=== PATIENT | female | born 1950 | race Caucasian/White ===

== ENCOUNTER 2021-05-23 10:41 | Emergency (ER) | payer MEDICARE, MEDICAID ==
[~2021-05-23] VITALS: Ht 165 cm; Wt 53.5 kg
--- NOTE | 2021-05-23 10:47 | ED Chest Pain ---
General Stated Complaint: CP,TACHYCARDIA Source: patient Exam Limitations: no limitations History of Present Illness Date Seen by Provider: May 23, 2021 Time Seen by Provider: 10:45 Initial Comments To ER with chest pain and tachycardia. Patient states this began sometime yesterday just medial to the left breast and persisted until about 1 hour ago. She is from [facility] and rehab. Staff reports that she did not mention it to them until this morning and there is some history of dementia as of the time of onset is unclear. Either way by the time EMS arrived she was without chest pain. Aspirin was given but no nitro. Allegedly her heart rate was 170 at some point but is not anymore. Timing/Duration: 1-2 days Severity/Quality: moderate Location: central Radiation: no radiation ASA po OYSTER CULTIVATOR: No NTG SL OYSTER CULTIVATOR: No Associated Symptoms: denies symptoms Allergies and Home Medications Allergies Coded Allergies: codeine (Verified Allergy, Unknown, 05/23/21) Patient Home Medication List Home Medication List Reviewed: Yes Review of Systems Review of Systems Constitutional: see HPI EENTM: No Symptoms Reported Respiratory: No Symptoms Reported Cardiovascular: See HPI, Chest Pain Gastrointestinal: See HPI Genitourinary: No Symptoms Reported Musculoskeletal: no symptoms reported Skin: no symptoms reported Psychiatric/Neurological: No Symptoms Reported Endocrine: No Symptoms Reported Hematologic/Lymphatic: No Symptoms Reported Physical Exam Vital Signs Vital Signs - First Documented Capillary Refill : Height, Weight, BMI Height: '" Weight: lbs. oz. kg; BMI Method: General Appearance: No Apparent Distress, WD/WN, Other (She is alert at this time but not good at recalling history. She does seem to have a bit of dementia. Hard to keep on track during conversation) Neck: Full Range of Motion, Normal Inspection Respiratory: No Accessory Muscle Use, No Respiratory Distress Cardiovascular: Regular Rate, Rhythm, Normal Peripheral Pulses Gastrointestinal: Normal Bowel Sounds, Non Tender, Soft Extremity: Normal Capillary Refill, Normal Inspection Neurologic/Psychiatric: Alert, Oriented x3 Skin: Normal Color, Warm/Dry Progress/Results/Core Measures Results/Orders Lab Results Laboratory Tests Test 05/23/21 11:00 Range/Units White Blood Count 4.8 4.3-11.0 10^3/uL Red Blood Count 4.13 3.80-5.11 10^6/uL Hemoglobin 12.5 11.5-16.0 g/dL Hematocrit 40 35-52 % Mean Corpuscular Volume 96 80-99 fL Mean Corpuscular Hemoglobin 30 25-34 pg Mean Corpuscular Hemoglobin Concent 32 32-36 g/dL Red Cell Distribution Width 15.3 H 10.0-14.5 % Platelet Count 148 130-400 10^3/uL Mean Platelet Volume 9.2 9.0-12.2 fL Immature Granulocyte % (Auto) 0 % Neutrophils (%) (Auto) 40 L 42-75 % Lymphocytes (%) (Auto) 48 H 12-44 % Monocytes (%) (Auto) 9 0-12 % Eosinophils (%) (Auto) 3 0-10 % Basophils (%) (Auto) 1 0-10 % Neutrophils # (Auto) 1.9 1.8-7.8 10^3/uL Lymphocytes # (Auto) 2.3 1.0-4.0 10^3/uL Monocytes # (Auto) 0.4 0.0-1.0 10^3/uL Eosinophils # (Auto) 0.1 0.0-0.3 10^3/uL Basophils # (Auto) 0.0 0.0-0.1 10^3/uL Immature Granulocyte # (Auto) 0.0 0.0-0.1 10^3/uL Prothrombin Time 13.2 12.2-14.7 SEC INR Comment 1.0 0.8-1.4 Activated Partial Thromboplast Time 30 24-35 SEC Sodium Level 144 135-145 MMOL/L Potassium Level 3.4 L 3.6-5.0 MMOL/L Chloride Level 106 98-107 MMOL/L Carbon Dioxide Level 32 21-32 MMOL/L Anion Gap 6 5-14 MMOL/L Blood Urea Nitrogen 13 7-18 MG/DL Creatinine 0.79 0.60-1.30 MG/DL Estimat Glomerular Filtration Rate 72 BUN/Creatinine Ratio 16 Glucose Level 110 H 70-105 MG/DL Calcium Level 9.4 8.5-10.1 MG/DL Corrected Calcium 10.0 8.5-10.1 MG/DL Magnesium Level 1.9 1.6-2.4 MG/DL Total Bilirubin 0.5 0.1-1.0 MG/DL Aspartate Amino Transf (AST/SGOT) 16 5-34 U/L Alanine Aminotransferase (ALT/SGPT) 12 0-55 U/L Alkaline Phosphatase 42 40-136 U/L Myoglobin 25.4 10.0-92.0 NG/ML Troponin I < 0.028 <0.028 NG/ML Total Protein 5.6 L 6.4-8.2 GM/DL Albumin 3.2 3.2-4.5 GM/DL My Orders Orders - KIMBER LOERA APRN Cbc With Automated Diff (05/23/21 10:44) Magnesium (05/23/21 10:44) Chest 1 View, Ap/Pa Only (05/23/21 10:44) Ekg Tracing (05/23/21 10:44) Comprehensive Metabolic Panel (05/23/21 10:44) Myoglobin Serum (05/23/21 10:44) Protime With Inr (05/23/21 10:44) Partial Thromboplastin Time (05/23/21 10:44) O2 (05/23/21 10:44) Monitor-Rhythm Ecg Trace Only (05/23/21 10:44) Lipid Panel (05/24/21 06:00) Ed Iv/Invasive Line Start (05/23/21 10:44) Troponin I (05/23/21 10:44) Vital Signs/I&O 05/23/21 05/23/21 10:44 10:44 Temp 36.8 Pulse 85 Resp 12 B/P (MAP) 129/72 (91) Pulse Ox 96 O2 Delivery Room Air Room Air Diagnostic Imaging Diagonstic Imaging: Xray Plain Films/CT/US/NM/MRI: chest Comments CXR clear Reviewed: Reviewed by Me Departure Communication (Admissions) EKG at 1055 shows sinus rhythm rate of 74 with a PAC, otherwise normal intervals no ST segment changes Impression Primary Impression: Chest pain Disposition: HOME, SELF-CARE Condition: Stable Departure-Patient Inst. Decision time for Depature: 12:23 Patient Instructions: NO INSTRUCTIONS GIVEN KIMBER LOERA APRN May 23, 2021 10:47
[2021-05-23 11:10] LABS: BASOPHILS % (AUTO) 1 % (0-10); EOSINOPHILS # (AUTO) 0.1 10^3/uL (0.0-0.3); EOSINOPHILS % (AUTO) 3 % (0-10); HEMATOCRIT 40 % (35-52); HEMOGLOBIN 12.5 g/dL (11.5-16.0); LYMPHOCYTES # (AUTO) 2.3 10^3/uL (1.0-4.0); LYMPHOCYTES % (AUTO) 48 % (12-44); MEAN CORPUSCULAR HEMOGLOBIN 30 pg (25-34); MEAN CORPUSCULAR HGB CONC 32 g/dL (32-36); MEAN CORPUSCULAR VOLUME 96 fL (80-99); MEAN PLATELET VOLUME 9.2 fL (9.0-12.2); MONOCYTES # (AUTO) 0.4 10^3/uL (0.0-1.0); MONOCYTES % (AUTO) 9 % (0-12); NEUTROPHILS # (AUTO) 1.9 10^3/uL (1.8-7.8); NEUTROPHILS % (AUTO) 40 % (42-75); PLATELET COUNT 148 10^3/uL (130-400); WHITE BLOOD COUNT 4.8 10^3/uL (4.3-11.0)
[2021-05-23 11:18] LABS: PROTHROMBIN TIME PATIENT 13.2 SEC (12.2-14.7)
--- NOTE | 2021-05-23 11:22 | Diagnostic Imaging Report ---
HISTORY: Chest pain TECHNIQUE: Frontal view of the chest FINDINGS: Lung volumes are normal. No focal consolidation is seen. There is no pleural effusion or pneumothorax. The cardiac silhouette is normal in size. There is aortic atherosclerosis. IMPRESSION: 1. No acute pulmonary abnormality. Dictated by: Dictated on workstation # [id number]
[2021-05-23 11:43] LABS: ALBUMIN 3.2 GM/DL (3.2-4.5); BILIRUBIN,TOTAL 0.5 MG/DL (0.1-1.0); CALCIUM 9.4 MG/DL (8.5-10.1); CREATININE SERUM 0.79 MG/DL (0.60-1.30); MAGNESIUM 1.9 MG/DL (1.6-2.4); POTASSIUM 3.4 MMOL/L (3.6-5.0); TOTAL PROTEIN 5.6 GM/DL (6.4-8.2)
[2021-05-23 12:30] VITALS: BP 135/95
== END 2021-05-23 12:30 | disposition home or self-care (01) ==
LOC: ER 10:42
DX: R07.89 Other chest pain (principal); F03.90 Unspecified dementia, unspecified severity, without behavioral disturbance, psychotic disturbance, mood disturbance, and anxiety
CPT/HCPCS: 36415; 71045; 80053; 83735; 83874; 84484; 85025; 85610; 85730; 93005; 93041

== ENCOUNTER → 2021-06-22 | Outpatient (CLI) | payer MEDICARE, MEDICAID | LOC: CARD 14:05 | PROVIDERS: ATTEND Internal Medicine Cardiovascular Disease | DX: I08.0 Rheumatic disorders of both mitral and aortic valves (principal) | CPT/HCPCS: 93306 ==

== ENCOUNTER → 2021-06-22 | Outpatient (CLI) | payer MEDICARE, MEDICAID | LOC: RAD 06-09 11:00 | PROVIDERS: ATTEND Nurse Practitioner Community Health | DX: Z53.9 Procedure and treatment not carried out, unspecified reason (principal) ==

== ENCOUNTER → 2021-07-26 | Outpatient (CLI) | payer MEDICARE, MEDICAID ==
[~2021-07-26] MED LIST: ACET-93 PO; ASPI-999 PO; ATOR40TA70 PO; CHOL-34 PO; DIVA125C PO; DIVA125C10 PO; ENOX40DI8 SC; FOLI1TAB33 PO; LACT10SO3 PO; LEVO100T7 PO; MTP25TSR PO; MULT-1136 PO; OXC5T PO; PANT20TA18 PO; SENN-234 PO; SERT-412 PO; TOLN45PO2 TP; TRZ50T PO
== END ==
LOC: ORTHO 09:37
PROVIDERS: ATTEND Orthopaedic Surgery
DX: Z09 Encounter for follow-up examination after completed treatment for conditions other than malignant neoplasm (principal); I10 Essential (primary) hypertension; Z98.890 Other specified postprocedural states

== ENCOUNTER → 2021-08-25 | Outpatient (CLI) | payer MEDICARE, MEDICAID ==
--- NOTE | 2021-08-25 09:53 | Diagnostic Imaging Report ---
INDICATION: Postop right hip fractures. Comparison with 07/07/2021. Two views. Two cannulated cortical bone screws are now present within the femoral trochanter and neck transfixing subcapital fracture with femoral head. Alignment is near anatomical. The screws appear in good position. Moderate arthritic changes noted of the right hip. IMPRESSION: Satisfactory appearing fixation of the right femoral neck fracture Dictated by: Dictated on workstation # [id number]
== END ==
LOC: ORTHO 09:11
PROVIDERS: ATTEND Orthopaedic Surgery
DX: Z09 Encounter for follow-up examination after completed treatment for conditions other than malignant neoplasm (principal); Z98.890 Other specified postprocedural states
CPT/HCPCS: 73502

== ENCOUNTER 2021-10-10 06:05 | Outpatient (CLI) | payer MEDICARE, MEDICAID ==
[~2021-10-10] VITALS: Ht 157.5 cm; Wt 62.6 kg
[2021-10-10] MEDS ORDERED: MICO85PO4 TP (13:32)
[2021-10-10] MEDS ORDERED: METO-351 PO (13:32)
== END 2021-10-10 15:15 | disposition home or self-care (01) ==
LOC: PREOP 06:05
PROVIDERS: ATTEND Surgery
DX: Z01.818 Encounter for other preprocedural examination (principal)

== ENCOUNTER 2021-10-18 08:53 | Day surgery (SDC) | payer MEDICARE, MEDICAID ==
[~2021-10-18] VITALS: Ht 157.5 cm; Wt 62.6 kg
[~2021-10-18 08:53] MED LIST changes: +METO-351 PO; +MICO85PO4 TP
[2021-10-18] MEDS ORDERED: LACTATED RINGERS 1,000 ML IV ONE (09:08)
[2021-10-18 09:17] VITALS: BP 157/99
--- NOTE | 2021-10-18 09:23 | Progress Note-Pre Operative ---
Pre-Operative Progress Note H&P Reviewed The H&P was reviewed, patient examined and no changes noted. Date Seen by Provider: Oct 18, 2021 Time Seen by Provider: :23 Date H&P Reviewed: Oct 18, 2021 Time H&P Reviewed: :23 Pre-Operative Diagnosis: +colMAGGY Rodriguez DO Oct 18, 2021 09:23
[2021-10-18] MEDS ORDERED: LACTATED RINGERS 1,000 ML IV STA (09:27)
[2021-10-18] MEDS ORDERED: proPOfol 200 MG/20 ML (DIPRIVAN) VIAL IV ONE (09:32)
[2021-10-18] MEDS ORDERED: ceFAZolin INJECTION 1,000 MG ONE (09:40)
--- NOTE | 2021-10-18 10:16 | Progress Note-Post Operative ---
Post-Operative Progess Note Surgeon (s)/Freelance Copywriter (s) Surgeon MAGGY GALEANO DO Freelance Copywriter: N/A Pre-Operative Diagnosis +cologuard Post-Operative Diagnosis Diverticulosis Procedure & Operative Findings Date of Procedure 10/18/21 Procedure Performed/Findings Colonoscopy Anesthesia Type per SALESFORCE TRAINER Estimated Blood Loss Estimated blood loss (mL): none Specimens/Packing Specimens Removed none MAGGY GALEANO DO Oct 18, 2021 10:16
--- NOTE | 2021-10-18 10:17 | Discharge Inst-Simple/Standard ---
Discharge Inst-Standard Patient Instructions/Follow Up Plan of Care/Instructions/FU: Patient does not need repeat colonoscopy unless having colonic difficulties. Follow up with Dr. Menchaca on as needed basis. Activity as Tolerated: Yes Discharge Diet: Regular Diet (high fiber) MAGGY MENCHACA DO Oct 18, 2021 10:17
--- NOTE | 2021-10-18 10:19 | Anesthesia-General Post-Op ---
MAC Patient Condition Mental Status/LOC: Same as Preop Cardiovascular: Satisfactory Nausea/Vomiting: Absent Respiratory: Satisfactory Pain: Controlled Complications: Absent Post Op Complications Complications None Follow Up Care/Instructions Patient Instructions None needed. Anesthesiology Discharge Order Discharge Order Patient is doing well, no complaints, stable vital signs, no apparent adverse anesthesia problems. No complications reported per nursing. ALFONZO ROLAND CRNA Oct 18, 2021 10:19
[2021-10-18 10:20] VITALS: BP 140/68
[2021-10-18 10:25] VITALS: BP 114/61
[2021-10-18 10:55] VITALS: BP 144/102
[2021-10-18 11:05] VITALS: BP 144/102
--- NOTE | 2021-10-18 16:30 | OPERATIVE REPORT ---
DATE OF SERVICE: 10/18/2021 PREOPERATIVE DIAGNOSIS: Positive Cologuard. POSTOPERATIVE DIAGNOSIS: Diverticulosis. PROCEDURE: Colonoscopy. SURGEON: Maggy Menchaca DO ANESTHESIA: Per TIRE INSPECTOR. ESTIMATED BLOOD LOSS: None. COMPLICATIONS: None. INDICATIONS: The patient is a 71-year-old female with positive Cologuard. She understands risks and benefits of procedure and wishes to proceed. Consent was signed in the chart. DESCRIPTION OF PROCEDURE: The patient was taken to the endoscopy suite, placed in left lateral recumbent position. Timeout was performed. Digital rectal exam was performed. No palpable polyps, masses or ulcerations. Scope was inserted in the rectum, advanced all the way to cecum with minimal difficulty. Prep was adequate. Scope was slowly retracted back. No polyps, masses or ulcerations within the cecum, ascending, transverse, descending and sigmoid colon. In the sigmoid colon, a moderate amount of diverticulosis present. Scope was continuously retracted back into the rectum, where it was also retroflexed noting no other pathology. Scope was returned to its normal position, slowly withdrawn until completely removed. The patient tolerated procedure well without any complications. She was taken to recovery room in stable condition. RECOMMENDATIONS: The patient will need repeat colonoscopy on an as needed basis. If she has any changing condition, she should be reevaluated at that time. Otherwise, due to age and comorbidities, I would not do anything else for screening. Job ID: [id number] DocumentID: [id number] Dictated Date: 10/18/2021 10:19:44 Behavioral Health Professional Date: 10/18/2021 16:29:49 Dictated By: MAGGY MENCHACA DO
== END 2021-10-18 11:05 | disposition home or self-care (01) ==
LOC: ENDO 08:53
PROVIDERS: ATTEND Surgery
DX: K57.30 Diverticulosis of large intestine without perforation or abscess without bleeding (principal); I10 Essential (primary) hypertension; E78.5 Hyperlipidemia, unspecified; E03.9 Hypothyroidism, unspecified; Z87.891 Personal history of nicotine dependence; Z79.82 Long term (current) use of aspirin; Z79.899 Other long term (current) drug therapy; Z79.890 Hormone replacement therapy; Z79.02 Long term (current) use of antithrombotics/antiplatelets; Z95.4 Presence of other heart-valve replacement

== ENCOUNTER → 2021-11-08 | Outpatient (CLI) | payer MEDICARE, MEDICAID | LOC: ORTHO 13:00 | PROVIDERS: ATTEND Orthopaedic Surgery | DX: M25.561 Pain in right knee (principal) | CPT/HCPCS: 99212 ==

== ENCOUNTER 2022-02-22 19:02 | Emergency (ER) | payer MEDICARE, MEDICAID ==
[~2022-02-22] VITALS: Ht 165 cm; Wt 58.9 kg
[2022-02-22 19:02] VITALS: BP 112/67
--- NOTE | 2022-02-22 19:24 | ED General ---
General Stated Complaint: AMS Source of Information: Patient Exam Limitations: No Limitations History of Present Illness Date Seen by Provider: Feb 22, 2022 Time Seen by Provider: 18:59 Initial Comments Patient to the ER by EMS from [facility] rehab with history of right hip fracture 2 months ago status postrepair. Today staff noticed she was a l ittle more lethargic and her blood pressure was low in the 90s. EMS states it was 112 when they arrived and went up to 136 by the time they arrived to the ER. Patient at baseline is wheelchair-bound and oriented only to her own name. She does indicates she is having discomfort and when asked where she states it is in her bottom. Her diaper has a nice soft stool and it in some stage I pressure ulcer. She is not on blood thinners has had no recent falls and denies chest pain or shortness of air. EMS got about 400 cc normal saline and her on route. Allergies and Home Medications Allergies Coded Allergies: codeine (Verified Allergy, Unknown, 05/23/21) Patient Home Medication List Home Medication List Reviewed: Yes Acetaminophen (Acetaminophen) 500 Mg Tablet, 500 MG PO Q6H PRN for PAIN-MILD (1- 4), (Reported) Entered as Reported by: ALLEN SPRING on 07/07/212139 Aspirin (Aspirin) 81 Mg Tab.chew, 81 MG PO DAILY, (Reported) Entered as Reported by: ALLEN SPRING on 07/07/212139 Atorvastatin Calcium (Atorvastatin Calcium) 40 Mg Tablet, 40 MG PO 1800, (Reported) Entered as Reported by: ALLEN SPRING on 07/07/212139 Cholecalciferol (Vitamin D3) (Vitamin D3) 25 Mcg Tablet, 25 MCG PO DAILY, (Reported) Entered as Reported by: ALLEN SPRING on 07/07/212139 Divalproex Sodium (Divalproex Sodium) 125 Mg Cap.sprink, 500 CAP PO DAILY, (Reported) Entered as Reported by: ALLEN SPRING on 07/07/212139 Folic Acid (Folic Acid) 1 Mg Tablet, 1 MG PO DAILY, (Reported) Entered as Reported by: ALLEN SPRING on 07/07/212139 Lactulose (Lactulose) 10 Gm/15 Ml Solution, 20 GM PO 0600,1400, (Reported) Entered as Reported by: ALLEN SPRING on 07/07/212139 Levothyroxine Sodium (Levothyroxine Sodium) 100 Mcg Tablet, 100 MCG PO DAILY, (Reported) Entered as Reported by: ALLEN SPRING on 07/07/212139 Metoprolol Succinate (Toprol Xl) 25 Mg Tab.er.24h, 25 MG PO DAILY, (Reported) Entered as Reported by: DARNELL MORTON on 10/10/211331 Miconazole Nitrate (Remedy Antifungal) 85 Gm Powder, 85 GM TP BID, (Reported) Entered as Reported by: DARNELL MORTON on 10/10/211331 Multivitamin (Multivitamin) 1 Each Tablet, 1 EACH PO DAILY, (Reported) Entered as Reported by: ALLEN SPRING on 07/07/212139 Pantoprazole Sodium (Pantoprazole Sodium) 20 Mg Tablet.dr, 20 MG PO DAILY, (Reported) Entered as Reported by: ALLEN SPRING on 07/07/212139 Sennosides (Senna) 8.6 Mg Tablet, 8.6 MG PO DAILY PRN for CONSTIPATION-5TH LINE, (Reported) Entered as Reported by: ALLEN SPRING on 07/07/212139 Sertraline HCl (Sertraline HCl) 25 Mg Tablet, 25 MG PO DAILY, (Reported) Entered as Reported by: ALLEN SPRING on 07/07/212139 Trazodone HCl (Trazodone HCl) 50 Mg Tablet, 150 MG PO HS, (Reported) Entered as Reported by: ALLEN SPRING on 07/07/212139 Review of Systems Review of Systems Constitutional: No chills, No diaphoresis EENTM: No ear discharge, No ear pain Respiratory: No cough, No dyspnea on exertion Cardiovascular: No chest pain, No palpitations Gastrointestinal: No abdominal pain, No constipation, No diarrhea, No nausea, No vomiting Genitourinary: No discharge, No dysuria Musculoskeletal: see HPI, back pain; No joint pain All Other Systems Reviewed Negative Unless Noted: Yes Past Xalumqj-Imdbfx-Hvvynw Hx Patient Social History Tobacco Use?: No Use of E-Cig and/or Vaping dev: No Substance use?: No Immunizations Up To Date Tetanus Booster (TDap): Unknown First/Initial COVID19 Vaccinat: NO Second COVID19 Vaccination Manpreet: NO Third COVID19 Vaccination Date: NO Seasonal Allergies Seasonal Allergies: No Past Medical History Surgeries: Yes Adenoidectomy, Breast, Orthopedic, Tonsillectomy Respiratory: No Cardiac: Yes High Cholesterol, Hypertension Neurological: Yes (METABOLIC ENCEPHALOPATHY) Genitourinary: No Gastrointestinal: Yes Gastroesophageal Reflux Musculoskeletal: No Endocrine: Yes Hypothyroidsim HEENT: No Cancer: No Psychosocial: Yes Bipolar, Depression Integumentary: No Blood Disorders: Yes (E.COLI) Family Medical History Other Conditions/Hx Physical Exam Vital Signs Vital Signs - First Documented 02/22/22 19:02 Temp 36.0 Pulse 64 Resp 20 B/P (MAP) 112/67 (82) Pulse Ox 94 Capillary Refill : Height, Weight, BMI Height: '" Weight: lbs. oz. kg; 25.23 BMI Method: General Appearance: No Apparent Distress, Chronically ill Eyes: Bilateral Eye Normal Inspection, Bilateral Eye PERRL, Bilateral Eye EOMI HEENT: PERRL/EOMI, Pharynx Normal, Moist Mucous Membranes Neck: Full Range of Motion, Normal Inspection Respiratory: Lungs Clear, Normal Breath Sounds, No Accessory Muscle Use, No Respiratory Distress Cardiovascular: Regular Rate, Rhythm, No Edema, Normal Peripheral Pulses Gastrointestinal: Normal Bowel Sounds, Non Tender, Soft Extremity: Normal Capillary Refill, Normal Inspection, No Pedal Edema Neurologic/Psychiatric: Alert, Oriented x3 Skin: Normal Color, Warm/Dry, Other (Stage I pressure ulcer on her sacrum) Progress/Results/Core Measures Suspected Sepsis SIRS Temperature: Pulse: Respiratory Rate: Laboratory Tests 02/22/22 19:08: White Blood Count 6.8 Blood Pressure / Mean: Laboratory Tests 02/22/22 19:08: Creatinine 0.65, Platelet Count 155, Total Bilirubin 0.4 Results/Orders Lab Results Laboratory Tests Test 02/22/22 19:08 02/22/22 19:20 Range/Units White Blood Count 6.8 4.3-11.0 10^3/uL Red Blood Count 3.87 3.80-5.11 10^6/uL Hemoglobin 12.4 11.5-16.0 g/dL Hematocrit 39 35-52 % Mean Corpuscular Volume 100 H 80-99 fL Mean Corpuscular Hemoglobin 32 25-34 pg Mean Corpuscular Hemoglobin Concent 32 32-36 g/dL Red Cell Distribution Width 13.4 10.0-14.5 % Platelet Count 155 130-400 10^3/uL Mean Platelet Volume 10.3 9.0-12.2 fL Immature Granulocyte % (Auto) 0 % Neutrophils (%) (Auto) 40 L 42-75 % Lymphocytes (%) (Auto) 50 H 12-44 % Monocytes (%) (Auto) 8 0-12 % Eosinophils (%) (Auto) 1 0-10 % Basophils (%) (Auto) 0 0-10 % Neutrophils # (Auto) 2.7 1.8-7.8 10^3/uL Lymphocytes # (Auto) 3.4 1.0-4.0 10^3/uL Monocytes # (Auto) 0.6 0.0-1.0 10^3/uL Eosinophils # (Auto) 0.0 0.0-0.3 10^3/uL Basophils # (Auto) 0.0 0.0-0.1 10^3/uL Immature Granulocyte # (Auto) 0.0 0.0-0.1 10^3/uL Sodium Level 141 135-145 MMOL/L Potassium Level 4.3 3.6-5.0 MMOL/L Chloride Level 102 98-107 MMOL/L Carbon Dioxide Level 29 21-32 MMOL/L Anion Gap 10 5-14 MMOL/L Blood Urea Nitrogen 11 7-18 MG/DL Creatinine 0.65 0.60-1.30 MG/DL Estimat Glomerular Filtration Rate 93 BUN/Creatinine Ratio 17 Glucose Level 129 H 70-105 MG/DL Calcium Level 9.1 8.5-10.1 MG/DL Corrected Calcium 10.0 8.5-10.1 MG/DL Total Bilirubin 0.4 0.1-1.0 MG/DL Aspartate Amino Transf (AST/SGOT) 27 5-34 U/L Alanine Aminotransferase (ALT/SGPT) 16 0-55 U/L Alkaline Phosphatase 52 40-136 U/L C-Reactive Protein High Sensitivity 0.05 0.00-0.50 MG/DL B-Type Natriuretic Peptide 44.2 <100.0 PG/ML Total Protein 5.4 L 6.4-8.2 GM/DL Albumin 2.9 L 3.2-4.5 GM/DL Urine Color YELLOW Urine Clarity CLEAR Urine pH 7.5 5-9 Urine Specific [place] 1.015 L 1.016-1.022 Urine Protein NEGATIVE NEGATIVE Urine Glucose (UA) NEGATIVE NEGATIVE Urine Ketones 1+ H NEGATIVE Urine Nitrite NEGATIVE NEGATIVE Urine Bilirubin NEGATIVE NEGATIVE Urine Urobilinogen 1.0 < = 1.0 MG/DL Urine Leukocyte Esterase 1+ H NEGATIVE Urine RBC (Auto) TRACE-L H NEGATIVE Urine RBC 5-10 H /HPF Urine WBC 10-25 H /HPF Urine Squamous Epithelial Cells 2-5 /HPF Urine Renal Epithelial Cells NONE /HPF Urine Crystals NONE /LPF Urine Bacteria MODERATE H /HPF Urine Casts NONE /LPF Urine Mucus LARGE H /LPF Urine Culture Indicated YES SARS-CoV-2 RNA (RT-PCR) Not Detected Not Detecte My Orders Orders - TEOFILO NICOLE Chest 1 View, Ap/Pa Only (02/22/22 19:12) Cbc With Automated Diff (02/22/22 19:12) Comprehensive Metabolic Panel (02/22/22 19:12) Hs C Reactive Protein (02/22/22 19:12) Ua Culture If Indicated (02/22/22 19:12) Straight Cath For Spec.-Adult (02/22/22 19:12) Covid 19 Inhouse Test (02/22/22 19:12) Bnp Samuel (02/22/22 19:12) Urine Culture (02/22/22 19:20) Ct Abd/Pelvis Wo(Kidney Stone) (02/22/22 20:08) Ceftriaxone 1 Gm Pre-Mix (Rocephin 1 Gm (02/22/22 20:15) Vital Signs/I&O 02/22/22 19:02 Temp 36.0 Pulse 64 Resp 20 B/P (MAP) 112/67 (82) Pulse Ox 94 Capillary Refill : Progress Note #1: Time: 19:30 Progress Note Plan to get a straight cath urine, chest x-ray and some labs. She has normal vital signs heart rate in the 60s blood pressure 115 on presentation and afebrile 36 temperature. She appears to be oriented at baseline. Progress Note #2: Time: 20:09 Progress Note Met with the daughter who reveals she had a urinalysis done in the skilled nursing little over a week ago and completed 1 week course of Macrobid and did not improve. She follows with Dr. Miller for primary care. She has a history of kidney stones. She has a little blood in the urine which could be from the straight cath or a kidney stone. She appears to be rather stoic and not in a lot of pain but we will going get a CT without IV contrast, kidney stone protocol to rule out kidney stones. We will give her a gram of Rocephin and we did discuss risks, benefits and alternatives with her daughter who is her algebra teacher about staying in the hospital overnight. Her vital signs been fine since has been here. Her daughter prefer to go back to the skilled nursing so we will set her up for Rocephin 1 g IV now and 1 g IM daily x2 more days. Diagnostic Imaging Diagonstic Imaging: Xray Plain Films/CT/US/NM/MRI: chest Comments [facility] [place] NAME: ROSANNE GLORIA [facility] REC#: [id number] PT STATUS: REG ER : 1950 PHYSICIAN: TEOFILO NICOLE MD ADMIT DATE: 02/22/22/ER Signed Date of Exam:02/22/22 CHEST 1 VIEW, AP/PA ONLY CHEST 1 VIEW, AP/PA ONLY Indication: Lethargy Comparison: 07/09/2021 Findings: No focal airspace disease in the visualized lungs. Please note that the posterior lower lobes are poorly evaluated by portable radiography. No pleural effusion or pneumothorax. Normal cardiomediastinal silhouette. Impression: 1. No acute cardiopulmonary process by portable radiography. Dictated by: Dictated on workstation # [id number] Dict: 02/22/222015 Trans: 02/22/[address] [place] [address] [id number] Interpreted by: HEMANT BURROUGHS MD Electronically signed by: HEMANT BURROUGHS MD 02/22/222016 Reviewed: Reviewed by Me Diagonstic Imaging: CT Plain Films/CT/US/NM/MRI: abdomen, pelvis Comments NAME: ROSANNE GLORIA [facility] REC#: [id number] PT STATUS: REG ER : 1950 PHYSICIAN: TEOFILO NICOLE MD ADMIT DATE: 02/22/22/ER Draft Date of Exam:02/22/22 CT ABD/PELVIS WO(KIDNEY STONE) CT abd/pelvis w/o(kidney stone) TECHNIQUE: Unenhanced CT imaging of the abdomen and pelvis was performed. 2-D reformats are created and submitted for interpretation. Automatic exposure controls were utilized to optimize patient dose. INDICATION: Flank pain. COMPARISON: None available. FINDINGS: Evaluation of the abdominal viscera is suboptimal without contrast. Lower chest: The lung bases are clear. No pericardial or pleural effusion. Peritoneum: No free intraperitoneal air or fluid. Liver and biliary system: Unenhanced liver is normal. The gallbladder is normal. No biliary duct dilation. Spleen and Pancreas: Spleen is normal. Unenhanced pancreas is grossly normal. Adrenals: Normal. tract: Punctate nonobstructing 2 mm right renal stone. No left renal stones. No ureteral stone on either side. Urinary bladder is normally filled. Uterus is normal in appearance. No adnexal mass. GI tract: Prior gastric sleeve surgery with decompressed stomach. No bowel obstruction. No pericolonic inflammatory changes. There are few scattered descending colon diverticula without features of diverticulitis. The appendix is not seen but there are no features of acute appendicitis. Vasculature and Lymph nodes: Normal caliber aorta has moderate atherosclerotic plaquing. No abdominal or pelvic lymphadenopathy. Musculoskeletal: Severe osteoarthritis of both hips. Prior screw fixation of healed femoral neck fracture on the right. IMPRESSION: 1. Punctate nonobstructing 2 mm stone in the mid right kidney. 2. No ureteral stones or obstructive uropathy. 3. Colonic diverticulosis without diverticulitis. Dictated on workstation # [id number] Dict: 02/22/222027 Trans: 02/22/222032 [facility] [id number] Interpreted by: HEMANT BURROUGHS MD Electronically signed by: Reviewed: Reviewed by Me Departure Impression Primary Impression: Urinary tract infection Qualified Codes: N30.01 - Acute cystitis with hematuria Additional Impression: Delirium due to another medical condition Disposition: HOME, SELF-CARE Condition: Stable Departure-Patient Inst. Decision time for Depature: 20:36 Referrals: MORELIA CHAVARRIA MD (PCP) Primary Care Physician Patient Instructions: Urinary Tract Infection, Adult (DC) Add. Discharge Instructions: Rocephin 1 g IM daily for 2 more days. Drink plenty of fluids. Return to the ER for significantly worsening symptoms. Follow-up with primary care provider to make sure the urine culture results are reviewed. Copy Copies To 1: MORELIA CHAVARRIA MD, TITUS J Feb 22, 2022 19:24
[2022-02-22 19:25] LABS: ALBUMIN 2.9 GM/DL (3.2-4.5); POTASSIUM 4.3 MMOL/L (3.6-5.0)
[2022-02-22 19:26] LABS: BILIRUBIN,URINE NEGATIVE (NEGATIVE); CLARITY,URINE CLEAR; COLOR,URINE YELLOW; GLUCOSE, URINE (UA) NEGATIVE (NEGATIVE); KETONES,URINE 1+ (NEGATIVE); LEUKOCYTE ESTERASE ,URINE 1+ (NEGATIVE); NITRITE,URINE NEGATIVE (NEGATIVE); PH,URINE 7.5 (5-9); PROTEIN,URINE NEGATIVE (NEGATIVE)
[2022-02-22 19:26] LABS: CALCIUM 9.1 MG/DL (8.5-10.1)
[2022-02-22 19:27] LABS: TOTAL PROTEIN 5.4 GM/DL (6.4-8.2)
[2022-02-22 19:29] LABS: BILIRUBIN,TOTAL 0.4 MG/DL (0.1-1.0)
[2022-02-22 19:31] LABS: CREATININE SERUM 0.65 MG/DL (0.60-1.30)
[2022-02-22 19:33] LABS: BACTERIA,URINE MODERATE /HPF
[2022-02-22 19:33] LABS: BASOPHILS % (AUTO) 0 % (0-10); EOSINOPHILS % (AUTO) 1 % (0-10); HEMATOCRIT 39 % (35-52); HEMOGLOBIN 12.4 g/dL (11.5-16.0); LYMPHOCYTES # (AUTO) 3.4 10^3/uL (1.0-4.0); LYMPHOCYTES % (AUTO) 50 % (12-44); MEAN CORPUSCULAR HEMOGLOBIN 32 pg (25-34); MEAN CORPUSCULAR HGB CONC 32 g/dL (32-36); MEAN CORPUSCULAR VOLUME 100 fL (80-99); MEAN PLATELET VOLUME 10.3 fL (9.0-12.2); MONOCYTES # (AUTO) 0.6 10^3/uL (0.0-1.0); MONOCYTES % (AUTO) 8 % (0-12); NEUTROPHILS # (AUTO) 2.7 10^3/uL (1.8-7.8); NEUTROPHILS % (AUTO) 40 % (42-75); PLATELET COUNT 155 10^3/uL (130-400); WHITE BLOOD COUNT 6.8 10^3/uL (4.3-11.0)
[2022-02-22] MEDS ORDERED: cefTRIAXone 1 GM PRE-MIX 50 ML IV ONE (20:15)
--- NOTE | 2022-02-22 20:19 | Diagnostic Imaging Report ---
CHEST 1 VIEW, AP/PA ONLY Indication: Lethargy Comparison: 07/09/2021 Findings: No focal airspace disease in the visualized lungs. Please note that the posterior lower lobes are poorly evaluated by portable radiography. No pleural effusion or pneumothorax. Normal cardiomediastinal silhouette. Impression: 1. No acute cardiopulmonary process by portable radiography. Dictated by: Dictated on workstation # [id number]
--- NOTE | 2022-02-22 20:34 | Diagnostic Imaging Report ---
CT abd/pelvis w/o(kidney stone) TECHNIQUE: Unenhanced CT imaging of the abdomen and pelvis was performed. 2-D reformats are created and submitted for interpretation. Automatic exposure controls were utilized to optimize patient dose. INDICATION: Flank pain. COMPARISON: None available. FINDINGS: Evaluation of the abdominal viscera is suboptimal without contrast. Lower chest: The lung bases are clear. No pericardial or pleural effusion. Peritoneum: No free intraperitoneal air or fluid. Liver and biliary system: Unenhanced liver is normal. The gallbladder is normal. No biliary duct dilation. Spleen and Pancreas: Spleen is normal. Unenhanced pancreas is grossly normal. Adrenals: Normal. tract: Punctate nonobstructing 2 mm right renal stone. No left renal stones. No ureteral stone on either side. Urinary bladder is normally filled. Uterus is normal in appearance. No adnexal mass. GI tract: Prior gastric sleeve surgery with decompressed stomach. No bowel obstruction. No pericolonic inflammatory changes. There are few scattered descending colon diverticula without features of diverticulitis. The appendix is not seen but there are no features of acute appendicitis. Vasculature and Lymph nodes: Normal caliber aorta has moderate atherosclerotic plaquing. No abdominal or pelvic lymphadenopathy. Musculoskeletal: Severe osteoarthritis of both hips. Prior screw fixation of healed femoral neck fracture on the right. IMPRESSION: 1. Punctate nonobstructing 2 mm stone in the mid right kidney. 2. No ureteral stones or obstructive uropathy. 3. Colonic diverticulosis without diverticulitis. Dictated by: Dictated on workstation # [id number]
== END 2022-02-22 21:03 | disposition home or self-care (01) ==
LOC: EDUNIT# 19:02 → ER 19:04
DX: F05 Delirium due to known physiological condition (principal); N30.01 Acute cystitis with hematuria; Z87.442 Personal history of urinary calculi; Z96.0 Presence of urogenital implants; Z99.3 Dependence on wheelchair; Z28.310 Unvaccinated for COVID-19; Z20.822 Contact with and (suspected) exposure to COVID-19
CPT/HCPCS: 36415; 51701; 71045; 74176; 80053; 81000; 83880; 85025; 86141; 87088; 87636

== ENCOUNTER 2022-02-25 20:29 | Inpatient (IN) | payer MEDICARE, MEDICAID ==
[~2022-02-25] VITALS: Ht 170 cm; Wt 59.0 kg
[2022-02-25] MEDS ORDERED: NS IV 1000 ML 1,000 ML IV SCH (21:15)
--- NOTE | 2022-02-25 21:20 | ED General ---
General Stated Complaint: HYPOTENSION Source of Information: Family History of Present Illness Date Seen by Provider: Feb 25, 2022 Time Seen by Provider: 21:18 Initial Comments Patient is a 71-year-old female with a history of dementia, hypertension who presents to ED by EMS from [facility] for low blood pressure and possible urinary tract infection. Patient was seen here on February 22 diagnosed with UTI. Patient Was given a dose of Rocephin here and recommended Rocephin IM for the next 2 days after. She was on Macrobid 2 weeks ago for UTI. according to family at bedside patient has been more lethargic not as "perky". She does get around with a wheelchair. she she does not appear at her normal baseline according to daughter. Patient was started on a liter of fluid by EMS. According to EMS patient blood pressure has been in the 90s and 80s systolic. Patient Was taken off metoprolol for history of low blood pressure without much improvement. Patient was covered in stool on arrival. According to daughter patient has had loose stools. No cough, vomiting, known fever, chest pain, shortness of breath according to daughter. Decreased appetite at home. She is not currently on blood thinners or recent falls. Allergies and Home Medications Allergies Coded Allergies: codeine (Verified Allergy, Unknown, 05/23/21) Patient Home Medication List Home Medication List Reviewed: Yes Acetaminophen (Acetaminophen) 500 Mg Tablet, 500 MG PO Q6H PRN for PAIN-MILD (1- 4), (Reported) Entered as Reported by: ALLEN SPRING on 07/07/212139 Aspirin (Aspirin) 81 Mg Tab.chew, 81 MG PO DAILY, (Reported) Entered as Reported by: ALLEN SPRING on 07/07/212139 Atorvastatin Calcium (Atorvastatin Calcium) 40 Mg Tablet, 40 MG PO 1800, (Reported) Entered as Reported by: ALLEN SPRING on 07/07/212139 Cholecalciferol (Vitamin D3) (Vitamin D3) 25 Mcg Tablet, 25 MCG PO DAILY, (Reported) Entered as Reported by: ALLEN SPRING on 07/07/212139 Divalproex Sodium (Divalproex Sodium) 125 Mg Cap.sprink, 500 CAP PO DAILY, (Reported) Entered as Reported by: ALLEN SPRING on 07/07/212139 Folic Acid (Folic Acid) 1 Mg Tablet, 1 MG PO DAILY, (Reported) Entered as Reported by: ALLEN SPRING on 07/07/212139 Lactulose (Lactulose) 10 Gm/15 Ml Solution, 20 GM PO 0600,1400, (Reported) Entered as Reported by: ALLEN SPRING on 07/07/212139 Levothyroxine Sodium (Levothyroxine Sodium) 100 Mcg Tablet, 100 MCG PO DAILY, (Reported) Entered as Reported by: ALLEN SPRING on 07/07/212139 Metoprolol Succinate (Toprol Xl) 25 Mg Tab.er.24h, 25 MG PO DAILY, (Reported) Entered as Reported by: DARNELL MORTON on 10/10/211331 Miconazole Nitrate (Remedy Antifungal) 85 Gm Powder, 85 GM TP BID, (Reported) Entered as Reported by: DARNELL MORTON on 10/10/211331 Multivitamin (Multivitamin) 1 Each Tablet, 1 EACH PO DAILY, (Reported) Entered as Reported by: ALLEN SPRING on 07/07/212139 Pantoprazole Sodium (Pantoprazole Sodium) 20 Mg Tablet.dr, 20 MG PO DAILY, (Reported) Entered as Reported by: ALLEN SPRING on 07/07/212139 Sennosides (Senna) 8.6 Mg Tablet, 8.6 MG PO DAILY PRN for CONSTIPATION-5TH LINE, (Reported) Entered as Reported by: ALLEN SPRING on 07/07/212139 Sertraline HCl (Sertraline HCl) 25 Mg Tablet, 25 MG PO DAILY, (Reported) Entered as Reported by: ALLEN SPRING on 07/07/212139 Trazodone HCl (Trazodone HCl) 50 Mg Tablet, 150 MG PO HS, (Reported) Entered as Reported by: ALLEN SPRING on 07/07/212139 Review of Systems Review of Systems Constitutional: chills, malaise, weakness EENTM: No blurred vision, No double vision Respiratory: No cough, No orthopnea, No short of breath Cardiovascular: No chest pain, No edema Gastrointestinal: No abdominal pain; diarrhea; No nausea, No vomiting Genitourinary: No decreased output, No discharge Musculoskeletal: No back pain Skin: No change in color, No change in hair/nails All Other Systems Reviewed Negative Unless Noted: Yes Past Dxldsaf-Zuhiqv-Ouwtfy Hx Immunizations Up To Date Tetanus Booster (TDap): Unknown First/Initial COVID19 Vaccinat: UNKNOWN Second COVID19 Vaccination Manpreet: NO Third COVID19 Vaccination Date: NO Seasonal Allergies Seasonal Allergies: No Past Medical History Surgeries: Yes Adenoidectomy, Breast, Orthopedic, Tonsillectomy Respiratory: No Cardiac: Yes High Cholesterol, Hypertension Neurological: Yes (METABOLIC ENCEPHALOPATHY) Genitourinary: No Gastrointestinal: Yes Gastroesophageal Reflux Musculoskeletal: No Endocrine: Yes Hypothyroidsim HEENT: No Cancer: No Psychosocial: Yes Bipolar, Depression Integumentary: No Blood Disorders: Yes (E.COLI) Family Medical History Other Conditions/Hx Physical Exam Vital Signs Vital Signs - First Documented Capillary Refill : Height, Weight, BMI Height: '" Weight: lbs. oz. kg; 21.00 BMI Method: General Appearance: No Apparent Distress, WD/WN Eyes: Bilateral Eye Normal Inspection, Bilateral Eye PERRL, Bilateral Eye EOMI HEENT: PERRL/EOMI, TMs Normal, Normal ENT Inspection, Pharynx Normal Neck: Full Range of Motion, Normal Inspection, Non Tender, Supple Respiratory: Chest Non Tender, Lungs Clear, Normal Breath Sounds, No Accessory Muscle Use, No Respiratory Distress Cardiovascular: Regular Rate, Rhythm, No Edema, No Gallop, No JVD, No Murmur Gastrointestinal: Normal Bowel Sounds, No Organomegaly, No Pulsatile Mass, Non Tender, Soft Back: Normal Inspection, No CVA Tenderness Extremity: Normal Capillary Refill, Normal Inspection, Normal Range of Motion, Non Tender, No Calf Tenderness Neurologic/Psychiatric: Other (Disoriented) Skin: Normal Color, Warm/Dry Focused Exam Lactate Level 02/25/22 22:19: Lactic Acid Level 1.47 Lactic Acid Level Laboratory Tests Test 02/25/22 22:19 Lactic Acid Level 1.47 MMOL/L (0.50-2.00) Progress/Results/Core Measures Suspected Sepsis SIRS Temperature: Pulse: Respiratory Rate: Laboratory Tests 02/25/22 22:00: White Blood Count 8.2 Blood Pressure / Mean: 02/25/22 22:19: Lactic Acid Level 1.47 Laboratory Tests 02/25/22 22:00: Creatinine 0.63, INR Comment 1.1, Platelet Count 126L, Total Bilirubin 0.2 Results/Orders Lab Results Laboratory Tests Test 02/25/22 22:00 02/25/22 22:19 02/26/22 00:41 02/26/22 01:18 Range/Units White Blood Count 8.2 4.3-11.0 10^3/uL Red Blood Count 3.47 L 3.80-5.11 10^6/uL Hemoglobin 11.1 L 11.5-16.0 g/dL Hematocrit 34 L 35-52 % Mean Corpuscular Volume 99 80-99 fL Mean Corpuscular Hemoglobin 32 25-34 pg Mean Corpuscular Hemoglobin Concent 32 32-36 g/dL Red Cell Distribution Width 13.4 10.0-14.5 % Platelet Count 126 L 130-400 10^3/uL Mean Platelet Volume 10.0 9.0-12.2 fL Immature Granulocyte % (Auto) 0 % Neutrophils (%) (Auto) 33 L 42-75 % Lymphocytes (%) (Auto) 58 H 12-44 % Monocytes (%) (Auto) 8 0-12 % Eosinophils (%) (Auto) 1 0-10 % Basophils (%) (Auto) 0 0-10 % Neutrophils # (Auto) 2.7 1.8-7.8 10^3/uL Lymphocytes # (Auto) 4.8 H 1.0-4.0 10^3/uL Monocytes # (Auto) 0.6 0.0-1.0 10^3/uL Eosinophils # (Auto) 0.1 0.0-0.3 10^3/uL Basophils # (Auto) 0.0 0.0-0.1 10^3/uL Immature Granulocyte # (Auto) 0.0 0.0-0.1 10^3/uL Percent Immature Platelet Fraction 2.8 0.0-7.6 % Prothrombin Time 14.4 12.2-14.7 SEC INR Comment 1.1 0.8-1.4 Activated Partial Thromboplast Time 31 24-35 SEC D-Dimer 0.26 0.00-0.49 UG/ML Sodium Level 139 135-145 MMOL/L Potassium Level 3.5 L 3.6-5.0 MMOL/L Chloride Level 104 98-107 MMOL/L Carbon Dioxide Level 25 21-32 MMOL/L Anion Gap 10 5-14 MMOL/L Blood Urea Nitrogen 12 7-18 MG/DL Creatinine 0.63 0.60-1.30 MG/DL Estimat Glomerular Filtration Rate 94 BUN/Creatinine Ratio 19 Glucose Level 89 70-105 MG/DL Calcium Level 8.2 L 8.5-10.1 MG/DL Corrected Calcium 9.5 8.5-10.1 MG/DL Total Bilirubin 0.2 0.1-1.0 MG/DL Aspartate Amino Transf (AST/SGOT) 26 5-34 U/L Alanine Aminotransferase (ALT/SGPT) 14 0-55 U/L Alkaline Phosphatase 41 40-136 U/L Troponin I 1.010 *H <0.028 NG/ML Total Protein 4.5 L 6.4-8.2 GM/DL Albumin 2.4 L 3.2-4.5 GM/DL Lactic Acid Level 1.47 0.50-2.00 MMOL/L Urine Color YELLOW Urine Clarity SL CLOUDY Urine pH 6.0 5-9 Urine Specific [place] >=1.030 1.016-1.022 Urine Protein TRACE H NEGATIVE Urine Glucose (UA) NEGATIVE NEGATIVE Urine Ketones TRACE H NEGATIVE Urine Nitrite NEGATIVE NEGATIVE Urine Bilirubin NEGATIVE NEGATIVE Urine Urobilinogen 0.2 < = 1.0 MG/DL Urine Leukocyte Esterase 1+ H NEGATIVE Urine RBC (Auto) NEGATIVE NEGATIVE Urine RBC 25-50 H /HPF Urine WBC 10-25 H /HPF Urine Squamous Epithelial Cells 5-10 /HPF Urine Crystals NONE /LPF Urine Bacteria NEGATIVE /HPF Urine Casts PRESENT /LPF Urine Hyaline Casts 0-2 H /LPF Urine Mucus NEGATIVE /LPF Urine Culture Indicated CULTURE PENDING Influenza Type A (RT-PCR) Not Detected Not Detecte Influenza Type B (RT-PCR) Not Detected Not Detecte SARS-CoV-2 RNA (RT-PCR) Not Detected Not Detecte Micro Results Microbiology 02/25/22 Blood Culture - Preliminary, Resulted No growth 02/25/22 Blood Culture - Preliminary, Resulted No growth My Orders Orders - IRINA DENSON Cbc With Automated Diff (02/25/22 21:08) Comprehensive Metabolic Panel (02/25/22 21:08) Blood Culture (02/25/22 21:08) Sputum Culture (02/25/22 21:08) Urinalysis (02/25/22 21:08) Urine Culture (02/25/22 21:08) Protime With Inr (02/25/22 21:08) Partial Thromboplastin Time (02/25/22 21:08) Chest 1 View, Ap/Pa Only (02/25/22 21:08) Ed Iv/Invasive Line Start (02/25/22 21:08) Troponin I Samuel (02/25/22 21:08) Vital Signs Adult Sepsis Patie Q15M (02/25/22 21:08) Lactic Acid Analyzer (02/25/22 21:08) Influenza A And B By Pcr (02/25/22 21:08) Ns Iv 1000 Ml (Sodium Chloride 0.9%) (02/25/22 21:15) Covid 19 Inhouse Test (02/25/22 21:08) Ekg Tracing (02/25/22 21:08) Parasite Scrn Stool Giard Cryp (02/25/22 21:22) Ns Iv 1000 Ml (Sodium Chloride 0.9%) (02/25/22 22:49) Fibrin Degradation Products (02/25/22 23:05) Aspirin Chewable Tablet (Baby Aspirin Ch (02/25/22 23:15) Enoxaparin Injection (Lovenox Injection) (02/25/22 23:15) Catheter(Urinary) Insert & Ass 03,15 (02/25/22 23:16) Medications Given in ED Vital Signs/I&O 02/25/22 02/25/22 20:33 20:33 Temp 36.8 36.8 Pulse 77 77 Resp 12 12 B/P (MAP) 95/66 (76) 95/66 Pulse Ox 100 100 O2 Delivery Room Air Room Air 02/25/22 23:59 Intake Total 1000 ml Balance 1000 ml Capillary Refill : ECG Comment Sinus rhythm with occasional supraventricular premature complexes, low voltage QRS in pericardial leads, moderate T wave normality in the anterior lateral leads, 78 bpm, QRS duration 82 MS, QTc 414 MS Departure Communication (PCP) Patient was discussed with Dr. Caba for elevated troponin. Recommends checking a D-dimer start on baby aspirin and Lovenox 1 mg/kg. Patient is a resident at [facility]. Was brought to the ED for hypotension. She was hypotensive here but blood pressure stayed between 80 and 110 systolic. She did have a few episodes where she dropped into the lower 60s but patient cuff was not appropriately on her arm and she was on her side. Improved when we rechecked. did start IV fluids here. She received 1 L by EMS and was started on a second liter here. 2 IV sites were placed. EKG without evidence of ST elevation or depression. T wave inversions in the lateral leads. Difficulty obtaining history from patient. She does have a history of dementia. Most of the history was provided from daughter. She states patient has not been her normal self. History of hypotension and was taken off metoprolol by cardiology. frequent UTIs. Was seen here on February 22 diagnosed with UTI. Concerning that she may have underlying UTI. According to daughter patient does touch her self in her genital areas. She reports severe diarrhea over the past few days. She was currently on Rocephin. Stool cultures were ordered and waiting at this time. Rule out C. difficile. Precautions here in the ED. normal white blood count. Hemoglobin 11.1. Hill catheter is currently pending. We will obtain a urine sample. Blood cultures ordered. Normal lactic acid. Patient's troponin returned at 1.01. Patient was discussed with Dr. Caba who recommends checking a D-dimer rule out PE and start baby aspirin and Lovenox 1 mg/ kg which was provided here. Patient was discussed with Dr. Morris who took over care at 11 PM waiting D-dimer results and to consult with hospitalist. Patient will be admitted for further evaluation. Continue monitoring blood pressure. Remain having a map over 65. Patient may need to be started on antibiotics Impression Primary Impression: Hypotension Additional Impression: UTI (urinary tract infection) Disposition: ADMITTED INPATIENT Condition: Stable Admissions Decision to Admit Reason: Admit from ER (General) Decision to Admit/Date: Feb 25, 2022 Time/Decision to Admit Time: 23:30 Departure-Patient Inst. Referrals: MORELIA CHAVARRIA MD (PCP/Family) Primary Care Physician IRINA DENSON Feb 25, 2022 21:20
--- NOTE | 2022-02-25 21:34 | Diagnostic Imaging Report ---
INDICATION: Cough and shortness of breath. EXAMINATION: Portable chest at 9:29 PM. There is mild scoliosis of the thoracic spine convex to the right. There is a tortuous aorta. Lungs are clear. There are no effusions or pneumothoraces. IMPRESSION: No acute abnormalities in the chest. Dictated by: Dictated on workstation # [id number]
[2022-02-25 22:10] LABS: LYMPHOCYTES # (AUTO) 4.8 10^3/uL (1.0-4.0)
[2022-02-25 22:12] LABS: BASOPHILS % (AUTO) 0 % (0-10); EOSINOPHILS # (AUTO) 0.1 10^3/uL (0.0-0.3); EOSINOPHILS % (AUTO) 1 % (0-10); HEMATOCRIT 34 % (35-52); HEMOGLOBIN 11.1 g/dL (11.5-16.0); LYMPHOCYTES % (AUTO) 58 % (12-44); MEAN CORPUSCULAR HEMOGLOBIN 32 pg (25-34); MEAN CORPUSCULAR HGB CONC 32 g/dL (32-36); MEAN CORPUSCULAR VOLUME 99 fL (80-99); MONOCYTES # (AUTO) 0.6 10^3/uL (0.0-1.0); MONOCYTES % (AUTO) 8 % (0-12); NEUTROPHILS # (AUTO) 2.7 10^3/uL (1.8-7.8); NEUTROPHILS % (AUTO) 33 % (42-75); PLATELET COUNT 126 10^3/uL (130-400); WHITE BLOOD COUNT 8.2 10^3/uL (4.3-11.0)
[2022-02-25 22:22] LABS: ALBUMIN 2.4 GM/DL (3.2-4.5); INR 1.1 (0.8-1.4); POTASSIUM 3.5 MMOL/L (3.6-5.0); PROTHROMBIN TIME PATIENT 14.4 SEC (12.2-14.7)
[2022-02-25 22:23] LABS: CALCIUM 8.2 MG/DL (8.5-10.1)
[2022-02-25 22:25] LABS: TOTAL PROTEIN 4.5 GM/DL (6.4-8.2)
[2022-02-25 22:27] LABS: BILIRUBIN,TOTAL 0.2 MG/DL (0.1-1.0)
[2022-02-25 22:28] LABS: CREATININE SERUM 0.63 MG/DL (0.60-1.30)
[2022-02-25] MEDS ORDERED: NS IV 1000 ML 1,000 ML IV STA (22:49)
[2022-02-25] MEDS ORDERED: ENOXAPARIN 60 MG/0.6 ML (LOVENOX) SYR SC ONE (23:15)
[2022-02-25] MEDS ORDERED: ASPIRIN 81 MG CHEW (CHILDREN'S ASA) PO ONE (23:15)
[2022-02-26] VITALS (7 sets, daily range): BP systolic 81–141; BP diastolic 49–76
[2022-02-26] MEDS ORDERED: LACTATED RINGERS 1,000 ML IV ONE (00:30)
[2022-02-26 00:52] LABS: BILIRUBIN,URINE NEGATIVE (NEGATIVE); CLARITY,URINE SL CLOUDY; COLOR,URINE YELLOW; GLUCOSE, URINE (UA) NEGATIVE (NEGATIVE); KETONES,URINE TRACE (NEGATIVE); LEUKOCYTE ESTERASE ,URINE 1+ (NEGATIVE); NITRITE,URINE NEGATIVE (NEGATIVE); PROTEIN,URINE TRACE (NEGATIVE)
[2022-02-26 01:11] LABS: BACTERIA,URINE NEGATIVE /HPF; HYALINE CASTS, URINE 0-2 /LPF; RBC,URINE 25-50 /HPF
[2022-02-26] MEDS ORDERED: cefTRIAXone 1 GM PRE-MIX 50 ML IV STA (01:14)
[2022-02-26] MEDS ORDERED: D5 1/2 NS W/KCL 20 MEQ/L 1,000 ML IV ONE (02:55)
[2022-02-26] MEDS ORDERED: ACETAMINOPHEN 500 MG TAB (TYLENOL) PO PRN (03:15)
[2022-02-26] MEDS: D5 1/2 NS W/KCL 20 MEQ/L 1,000 ML IV SCH ×5 (03:15→18:02)
[2022-02-26] MEDS ORDERED: ONDANSETRON 4 MG/2 ML (SDV) Z0FRAN IV PRN (03:15)
[2022-02-26] MEDS: VANCOMYCIN 125 MG CAPSULE PO SCH ×3 (05:23→22:47)
[2022-02-26 06:25] LABS: BASOPHILS % (AUTO) 0 % (0-10); HEMATOCRIT 33 % (35-52); MEAN PLATELET VOLUME 10.3 fL (9.0-12.2)
[2022-02-26 06:27] LABS: EOSINOPHILS # (AUTO) 0.1 10^3/uL (0.0-0.3); EOSINOPHILS % (AUTO) 1 % (0-10); HEMOGLOBIN 10.5 g/dL (11.5-16.0); LYMPHOCYTES # (AUTO) 4.1 10^3/uL (1.0-4.0); LYMPHOCYTES % (AUTO) 61 % (12-44); MEAN CORPUSCULAR HEMOGLOBIN 33 pg (25-34); MEAN CORPUSCULAR HGB CONC 32 g/dL (32-36); MEAN CORPUSCULAR VOLUME 102 fL (80-99); MONOCYTES # (AUTO) 0.5 10^3/uL (0.0-1.0); MONOCYTES % (AUTO) 8 % (0-12); NEUTROPHILS % (AUTO) 30 % (42-75); PLATELET COUNT 106 10^3/uL (130-400); WHITE BLOOD COUNT 6.7 10^3/uL (4.3-11.0)
[2022-02-26 06:33] LABS: POTASSIUM 3.7 MMOL/L (3.6-5.0)
[2022-02-26 06:34] LABS: CALCIUM 7.7 MG/DL (8.5-10.1)
[2022-02-26 06:39] LABS: CREATININE SERUM 0.52 MG/DL (0.60-1.30)
--- NOTE | 2022-02-26 08:22 | Diagnostic Imaging Report ---
EXAMINATION: Chest 1 view HISTORY: Cough COMPARISON: 02/25/2022 FINDINGS: The lungs are clear without edema or pneumonia. No pleural effusion or pneumothorax. Heart size is normal. There is prominence of the right mediastinal border. IMPRESSION: 1. Prominence of the right mediastinal border which may represent a dilated aorta or lymphadenopathy. Chest CT with contrast recommended for further evaluation. Dictated by: Dictated on workstation # [id number]
[2022-02-26] MEDS: LACTOBACILLUS ACIDOPHILUS (PROBIOTIC) CAPSULE PO SCH ×4 (09:19→20:18)
[2022-02-26] MEDS: ASPIRIN E.C. 81 MG (ECOTRIN) TAB PO SCH (09:19)
--- NOTE | 2022-02-26 12:10 | Consultation-Cardiology ---
HPI-Cardiology Cardiology Consultation Date of Consultation 02/26/22 Date of Admission Time Seen by Provider: 12:03 Indication: Elevated troponin level HPI 71-year-old lady with advanced dementia. Had history of hypotension. Admitted through the emergency room with episode of hypotension, generalized weakness and urinary tract infection. She was treated with 1 dose of Rocephin at [facility], she was on Macrobid prior to that. She became more lethargic and fatigued. Denied any chest pain. On my evaluation she was awake, comfortable, denied any chest pain, did not provide any history but she was answering by yes or no. History was obtained by reviewing her records Home Medications & Allergies Allergies: Coded Allergies: codeine (Verified Allergy, Unknown, 05/23/21) Home Medication List Reviewed: Yes [id number]-Vsgogm Hx Patient Social History Marital Status: Employed/Student: retired Drug of Choice: HX PSYCHOACTIVE SUBSTANCE ABUSE Type Used: Cigarettes 2nd Hand Smoke Exposure: No Recent Hopitalizations: No Have you traveled recently?: No Alcohol Use?: No Immunizations Up To Date Tetanus Booster (TDap): Unknown Past Medical History Discussed below Family Medical History Significant Family History: Other Conditions/Hx Family Medical Hx Noncontributory Review of Systems-General Review of Systems Constitutional: chills, malaise, weakness EENTM: No blurred vision, No double vision Respiratory: No cough, No orthopnea, No short of breath Cardiovascular: see HPI; No chest pain, No edema Gastrointestinal: see HPI; No abdominal pain; diarrhea; No nausea, No vomiting Genitourinary: see HPI; No decreased output, No discharge Musculoskeletal: see HPI; No back pain Skin: see HPI; No change in color, No change in hair/nails Psychiatric/Neurological: See HPI All Other Systems Reviewed Negative Unless Noted: Yes Reviewed Test Results Reviewed Test Results Lab Laboratory Tests Test 02/25/22 22:00 02/25/22 22:19 02/26/22 00:41 02/26/22 01:18 Range/Units White Blood Count 8.2 4.3-11.0 10^3/uL Red Blood Count 3.47 L 3.80-5.11 10^6/uL Hemoglobin 11.1 L 11.5-16.0 g/dL Hematocrit 34 L 35-52 % Mean Corpuscular Volume 99 80-99 fL Mean Corpuscular Hemoglobin 32 25-34 pg Mean Corpuscular Hemoglobin Concent 32 32-36 g/dL Red Cell Distribution Width 13.4 10.0-14.5 % Platelet Count 126 L 130-400 10^3/uL Mean Platelet Volume 10.0 9.0-12.2 fL Immature Granulocyte % (Auto) 0 % Neutrophils (%) (Auto) 33 L 42-75 % Lymphocytes (%) (Auto) 58 H 12-44 % Monocytes (%) (Auto) 8 0-12 % Eosinophils (%) (Auto) 1 0-10 % Basophils (%) (Auto) 0 0-10 % Neutrophils # (Auto) 2.7 1.8-7.8 10^3/uL Lymphocytes # (Auto) 4.8 H 1.0-4.0 10^3/uL Monocytes # (Auto) 0.6 0.0-1.0 10^3/uL Eosinophils # (Auto) 0.1 0.0-0.3 10^3/uL Basophils # (Auto) 0.0 0.0-0.1 10^3/uL Immature Granulocyte # (Auto) 0.0 0.0-0.1 10^3/uL Percent Immature Platelet Fraction 2.8 0.0-7.6 % Prothrombin Time 14.4 12.2-14.7 SEC INR Comment 1.1 0.8-1.4 Activated Partial Thromboplast Time 31 24-35 SEC D-Dimer 0.26 0.00-0.49 UG/ML Sodium Level 139 135-145 MMOL/L Potassium Level 3.5 L 3.6-5.0 MMOL/L Chloride Level 104 98-107 MMOL/L Carbon Dioxide Level 25 21-32 MMOL/L Anion Gap 10 5-14 MMOL/L Blood Urea Nitrogen 12 7-18 MG/DL Creatinine 0.63 0.60-1.30 MG/DL Estimat Glomerular Filtration Rate 94 BUN/Creatinine Ratio 19 Glucose Level 89 70-105 MG/DL Calcium Level 8.2 L 8.5-10.1 MG/DL Corrected Calcium 9.5 8.5-10.1 MG/DL Total Bilirubin 0.2 0.1-1.0 MG/DL Aspartate Amino Transf (AST/SGOT) 26 5-34 U/L Alanine Aminotransferase (ALT/SGPT) 14 0-55 U/L Alkaline Phosphatase 41 40-136 U/L Troponin I 1.010 *H <0.028 NG/ML Total Protein 4.5 L 6.4-8.2 GM/DL Albumin 2.4 L 3.2-4.5 GM/DL Lactic Acid Level 1.47 0.50-2.00 MMOL/L Urine Color YELLOW Urine Clarity SL CLOUDY Urine pH 6.0 5-9 Urine Specific [place] >=1.030 1.016-1.022 Urine Protein TRACE H NEGATIVE Urine Glucose (UA) NEGATIVE NEGATIVE Urine Ketones TRACE H NEGATIVE Urine Nitrite NEGATIVE NEGATIVE Urine Bilirubin NEGATIVE NEGATIVE Urine Urobilinogen 0.2 < = 1.0 MG/DL Urine Leukocyte Esterase 1+ H NEGATIVE Urine RBC (Auto) NEGATIVE NEGATIVE Urine RBC 25-50 H /HPF Urine WBC 10-25 H /HPF Urine Squamous Epithelial Cells 5-10 /HPF Urine Crystals NONE /LPF Urine Bacteria NEGATIVE /HPF Urine Casts PRESENT /LPF Urine Hyaline Casts 0-2 H /LPF Urine Mucus NEGATIVE /LPF Urine Culture Indicated CULTURE PENDING Influenza Type A (RT-PCR) Not Detected Not Detecte Influenza Type B (RT-PCR) Not Detected Not Detecte SARS-CoV-2 RNA (RT-PCR) Not Detected Not Detecte Test 02/26/22 02:58 02/26/22 06:00 Range/Units Troponin I 0.857 *H 0.680 *H <0.028 NG/ML White Blood Count 6.7 4.3-11.0 10^3/uL Red Blood Count 3.22 L 3.80-5.11 10^6/uL Hemoglobin 10.5 L 11.5-16.0 g/dL Hematocrit 33 L 35-52 % Mean Corpuscular Volume 102 H 80-99 fL Mean Corpuscular Hemoglobin 33 25-34 pg Mean Corpuscular Hemoglobin Concent 32 32-36 g/dL Red Cell Distribution Width 13.5 10.0-14.5 % Platelet Count 106 L 130-400 10^3/uL Mean Platelet Volume 10.3 9.0-12.2 fL Immature Granulocyte % (Auto) 0 % Neutrophils (%) (Auto) 30 L 42-75 % Lymphocytes (%) (Auto) 61 H 12-44 % Monocytes (%) (Auto) 8 0-12 % Eosinophils (%) (Auto) 1 0-10 % Basophils (%) (Auto) 0 0-10 % Neutrophils # (Auto) 2.0 1.8-7.8 10^3/uL Lymphocytes # (Auto) 4.1 H 1.0-4.0 10^3/uL Monocytes # (Auto) 0.5 0.0-1.0 10^3/uL Eosinophils # (Auto) 0.1 0.0-0.3 10^3/uL Basophils # (Auto) 0.0 0.0-0.1 10^3/uL Immature Granulocyte # (Auto) 0.0 0.0-0.1 10^3/uL Percent Immature Platelet Fraction 2.9 0.0-7.6 % Sodium Level 136 135-145 MMOL/L Potassium Level 3.7 3.6-5.0 MMOL/L Chloride Level 109 H 98-107 MMOL/L Carbon Dioxide Level 19 L 21-32 MMOL/L Anion Gap 8 5-14 MMOL/L Blood Urea Nitrogen 9 7-18 MG/DL Creatinine 0.52 L 0.60-1.30 MG/DL Estimat Glomerular Filtration Rate 99 BUN/Creatinine Ratio 17 Glucose Level 113 H 70-105 MG/DL Calcium Level 7.7 L 8.5-10.1 MG/DL Physical Exam Physical Exam Vital Signs Vital Signs - First Documented Capillary Refill : Less Than 3 Seconds Height, Weight, BMI Height: '" Weight: lbs. oz. kg; 20.10 BMI Method: General Appearance: No Apparent Distress, WD/WN Eyes: Bilateral Eye Normal Inspection, Bilateral Eye PERRL, Bilateral Eye EOMI HEENT: PERRL/EOMI, TMs Normal, Normal ENT Inspection, Pharynx Normal Neck: Full Range of Motion, Normal Inspection, Non Tender, Supple Respiratory: Chest Non Tender, Lungs Clear, Normal Breath Sounds, No Accessory Muscle Use, No Respiratory Distress Cardiovascular: Regular Rate, Rhythm, No Edema, No Gallop, No JVD, No Murmur Gastrointestinal: Normal Bowel Sounds, No Organomegaly, No Pulsatile Mass, Non Tender, Soft Back: Normal Inspection, No CVA Tenderness Extremity: Normal Capillary Refill, Normal Inspection, Normal Range of Motion, Non Tender, No Calf Tenderness Neurologic/Psychiatric: Other (Disoriented) Skin: Normal Color, Warm/Dry A/P-Cardiology Admission Diagnosis Hypotensive shock Non-ST elevation myocardial infarction Coronary artery disease Congestive heart failure, acute left ventricular systolic dysfunction, ischemic cardiomyopathy Assessment/Plan Hypotensive shock. Probably underlying UTI. Patient has history of hypotension. Receiving antibiotic and IV fluid. Urinary tract infection, recurrent UTI, receiving antibiotics and managed by primary care team Non-ST elevation myocardial infarction, EKG showed new T wave inversion in the anterolateral leads, troponin elevation is trending down. Probably patient had a recent event with myocardial infarction, review of her echo showed akinesia of the apex and anterior apical segment. Patient was started on aspirin and Lovenox, I will continue with conservative management and her medical review specialist Dr. Hill will assess her in the morning Congestive heart failure, acute left ventricular systolic dysfunction, ischemic cardiomyopathy, ejection fraction 30 to 35%. Cannot tolerate beta-blockers and/or YOKASTA inhibitor and/or ARB due to hypotension. Hyperlipidemia, maintained on Lipitor 40 mg daily, I will hold for now and monitor Advanced dementia Clinical Quality Measures AMI/AHF: ASA po Prior to arrival: No KAILA MELCHOR MD Feb 26, 2022 12:10
--- NOTE | 2022-02-26 12:39 | History & Physical-Hospitalist ---
History of Present Illness HPI/Chief Complaint Patient is a 71-year-old female with a history of dementia, hypertension who presents to ED by EMS from [facility] for low blood pressure and possible urinary tract infection. Patient was seen here on February 22 diagnosed with UTI. Patient Was given a dose of Rocephin here and recommended Rocephin IM for the next 2 days after. She was on Macrobid 2 weeks ago for UTI. according to family at bedside patient has been more lethargic not as "perky". She does get around with a wheelchair. she she does not appear at her normal baseline according to daughter. Patient was started on a liter of fluid by EMS. A ccording to EMS patient blood pressure has been in the 90s and 80s systolic. Patient Was taken off metoprolol for history of low blood pressure without much improvement. Patient was covered in stool on arrival. According to daughter patient has had loose stools. No cough, vomiting, known fever, chest pain, shortness of breath according to daughter. Decreased appetite at home. She is not currently on blood thinners or recent falls. On my arrival patient's eyes were open oriented to person only answered a few simple questions but reliability questionable. This is apparently at her close to baseline state. She denied pain then stopped answering any other questions. She did not appear to be in acute distress. Date Seen 02/26/22 Time Seen by a Provider: 10:30 Attending Physician Allen Lambert MD PCP Admitting Physician: Shadi Vasquez MD Attending Physician: Shadi Vasquez MD Referring Physician Date of Admission Feb 26, 2022 at 01:20 Home Medications & Allergies Home Medications Reviewed patient Home Medication Reconciliation performed by pharmacy medication reconciliations line technician and/or nursing. Patients Allergies have been reviewed. Allergies Allergies Coded Allergies codeine (Verified Allergy, Unknown, 05/23/21) Past Gzuehdr-Zomhhq-Hfmvcx Hx Patient Social History Marrital Status: Employed/Student: retired Tobacco Use?: No Use of E-Cig and/or Vaping dev: No Substance use?: No Alcohol Use?: No Pt feels they are or have been: No Immunizations Up To Date First/Initial COVID19 Vaccinat: UNKNOWN Second COVID19 Vaccination Manpreet: NO Tetanus Booster (TDap): Unknown Seasonal Allergies Seasonal Allergies: No Current Status Advance Directives: No Communicates: Verbally Primary Language: Maldivian Preferred Spoken Language: Maldivian Is interpretation needed?: No Past Medical History Surgeries: Adenoidectomy, Breast, Orthopedic, Tonsillectomy High Cholesterol, Hypertension Gastroesophageal Reflux Hypothyroidsim Bipolar, Depression Blood Disorders: Yes (E.COLI) PMHx: (per chart, patient unable to provide any history) Dementia Hypothyroidism GERD Depression HLD Anxiety History of alcohol abuse SVT Family Medical History Other Conditions/Hx Review of Systems Constitutional: see HPI Physical Exam Physical Exam Vital Signs Vital Signs - First Documented Capillary Refill : Less Than 3 Seconds Height, Weight, BMI Height: '" Weight: lbs. oz. kg; 20.10 BMI Method: General Appearance: No Apparent Distress, Cachetic Respiratory: Chest Non Tender, Lungs Clear, Normal Breath Sounds, No Accessory Muscle Use, No Respiratory Distress Cardiovascular: Regular Rate, Rhythm, No Edema, No Gallop, No JVD, No Murmur, Normal Peripheral Pulses Gastrointestinal: Normal Bowel Sounds, No Organomegaly, No Pulsatile Mass, Non Tender, Soft Extremity: Normal Inspection, Non Tender, No Calf Tenderness, No Pedal Edema Results Results/Procedures Labs Laboratory Tests 02/25/22 22:00 02/26/22 06:00 Patient resulted labs reviewed. Assessment/Plan Admission Diagnosis 1. Probable C. difficile staff had a difficult time as she is incontinent of urine and stool which is her baseline wearing depends in regards to getting a specimen. It has a C. difficile odor to it with the right timeframe having recently been given antibiotics for a reported urinary tract infection which is however doubtful as a straight cath specimen revealed no growth obtained from the emergency room on 24 September. Will initiate oral vancomycin empirically 200 mg every 8 and monitor. Family was not present but need to discuss CODE STATUS issues considering advanced dementia presumed Alzheimer's. 2. Mildly elevated troponin likely type II [place] however will defer to cardiology. In the past family was stated they would only opt for conservative management even if coronary disease was found considering her dementia which is quite reasonable. 3. Dehydration secondary to above in an individual who and review of past medical record appears to have low blood pressure at baseline when not in distress. Continue IV fluids we will obtain a random cortisol level. Admission Status: Observation Clinical Quality Measures AMI/AHF: ASA po Prior to arrival: SHADI Mitchell MD Feb 26, 2022 12:38
[2022-02-26] MEDS: ENOXAPARIN 60 MG/0.6 ML (LOVENOX) SYR SC SCH ×2 (13:02→23:24)
[2022-02-27 04:24] VITALS: BP 124/74
[2022-02-27] MEDS: VANCOMYCIN 125 MG CAPSULE PO SCH ×3 (06:30→23:09)
[2022-02-27 08:00] VITALS: BP 126/83
[2022-02-27] MEDS: ASPIRIN E.C. 81 MG (ECOTRIN) TAB PO SCH (08:12)
[2022-02-27] MEDS: LACTOBACILLUS ACIDOPHILUS (PROBIOTIC) CAPSULE PO SCH ×4 (08:12→20:52)
[2022-02-27] MEDS ORDERED: DIVA125C10 PO (09:42)
[2022-02-27] MEDS ORDERED: ACET325T49 PO (09:51)
--- NOTE | 2022-02-27 10:54 | Cardiology Progress Note ---
Subjective Date Seen by Provider: Feb 27, 2022 Time Seen by Provider: 10:45 Subjective/Events-last exam Patient is in bed, appears slightly aggitated this morning. Review of Systems General: No Chills, No Night Sweats; Fatigue, Malaise; No Appetite, No Other Focused Exam Lactate Level 02/25/22 22:19: Lactic Acid Level 1.47 Objective-Cardiology Exam Last Set of Vital Signs Vital Signs 02/27/22 02/27/22 08:00 08:10 Temp 36.8 Pulse 80 Resp 18 B/P (MAP) 126/83 (97) Pulse Ox 96 O2 Delivery Room Air I&O Intake and Output 02/27/22 00:00 Intake Total 6280 ml Output Total 2400 ml Balance 3880 ml Intake Oral 1280 ml IV Total 5000 ml Output Urine Total 2400 ml General: Alert, No Acute Distress HEENT: Atraumatic Lungs: Clear to Auscultation, Normal Air Movement Heart: Regular Rate Abdomen: Normal Bowel Sounds, Soft Skin: No Rashes, No Significant Lesion Neuro: Normal Speech A/P-Cardiology Admission Diagnosis Hypotensive shock Non-ST elevation myocardial infarction Coronary artery disease Congestive heart failure, acute left ventricular systolic dysfunction, ischemic cardiomyopathy Assessment/Plan Hypotensive shock. Probably underlying UTI. Patient has history of hypotension. Receiving antibiotic and IV fluid. Blood pressure is better at this time. Continue to monitor Urinary tract infection, recurrent UTI, receiving antibiotics and managed by primary care team Non-ST elevation myocardial infarction, EKG showed new T wave inversion in the anterolateral leads, troponin elevation is trending down. Probably patient had a recent event with myocardial infarction, review of her echo showed akinesia of the apex and anterior apical segment. Patient was started on aspirin and Lovenox, I will continue with conservative management. Congestive heart failure, acute left ventricular systolic dysfunction, ischemic cardiomyopathy, ejection fraction 30 to 35%. Was unable to tolerate beta-blockers and/or YOKASTA inhibitor and/or ARB due to hypotension. Hyperlipidemia, maintained on Lipitor 40 mg daily, I will hold for now and monitor Advanced dementia Supervisory-Addendum Brief Supervisory Addendum Participated in pt care: history, MDM, physical Personally performed: exam, history, MDM Care discussed with: DENNISE Results interpretation: Verified all documentation Notes: Patient was seen and evaluated with Sofía, examination performed, management plan was discussed, agree with the current scribed note, I made few changes to the note using Italic font Patient was seen at bedside laying down in bed, agitated Confused Patient has underlying advanced dementia, unable to provide any history but does not appear to be in distress Blood pressure appears to be better at this time Conservative management is recommended. Okay for discharge from cardiology standpoint SOFÍA CADET Feb 27, 2022 10:54 KAILA MELCHOR MD Feb 27, 2022 11:13
[2022-02-27 12:36] VITALS: BP 125/82
[2022-02-27] MEDS: ENOXAPARIN 60 MG/0.6 ML (LOVENOX) SYR SC SCH ×2 (13:13→23:09)
[2022-02-27] MEDS ORDERED: DIVA125C PO (14:17)
--- NOTE | 2022-02-27 14:19 | Progress Note ---
Subjective Subjective/Events-last exam 71 yo F with Dementia. She is doing well this AM. She is pleasantly confused and states that she is ahsan. Eating and drinking improving. Denies any pain. Spoke with Daughter in Law Effie over the phone. Patient seems to be at here baseline. Updated her on the plan of care. Review of Systems Pulmonary: No Dyspnea, No Cough Cardiovascular: No: Chest Pain, Palpitations Neurological: Confusion Focused Exam Lactate Level 02/25/22 22:19: Lactic Acid Level 1.47 Objective Exam Last Set of Vital Signs Vital Signs Date Time Temp Pulse Resp B/P (MAP) Pulse Ox O2 Delivery O2 Flow Rate FiO2 02/27/22 12:58 100 02/27/22 12:36 36.6 18 125/82 (96) 95 Room Air Capillary Refill : Less Than 3 Seconds I&O Intake and Output 02/26/22 23:59 Intake Total 6280 ml Output Total 2400 ml Balance 3880 ml Intake Oral 1280 ml IV Total 5000 ml Output Urine Total 2400 ml General: Alert (person and place) Lungs: Clear to Auscultation, Normal Air Movement Heart: Regular Rate, No Murmurs Abdomen: Normal Bowel Sounds, Soft, No Tenderness, No Masses Extremities: No Edema, No Tenderness/Swelling Results/Procedures Lab Microbiology 02/25/22 Blood Culture - Preliminary, Resulted No growth Assessment/Plan Assessment/Plan (1) UTI (urinary tract infection) Status: Acute Assessment & Plan: 02/27: Recently treated with antibiotics for pyureia, culture negative Qualifiers: Qualified Codes: N30.00 - Acute cystitis without hematuria (2) Hypotension Status: Acute Assessment & Plan: 02/27: Found to be hypotensive at [place], currently normotensive, holding blood pressure medications, encouraging PO hydration (3) Antibiotic-associated diarrhea Status: Acute Assessment & Plan: 02/27: Concerns for C. Diff, continue oral vancomycin (4) Elevated troponin Status: Acute Assessment & Plan: 02/27: Cardiology consulted, appreciate recommendations, Likely type-II demand ischemia due to profound hypotension, family would like to maximize medical management at this time. (5) Dementia Status: Chronic Assessment & Plan: 02/27: Patient seems to be at her baseline Qualifiers: Qualified Codes: G30.1 - Alzheimer's disease with late onset; F02.81 - Dementia in other diseases classified elsewhere with behavioral disturbance (6) DVT prophylaxis Status: Acute Assessment & Plan: - Lovenox (7) Discharge planning issues Status: Acute Assessment & Plan: 02/27: Normotensive, will continue to watch overnight and possible d/c to NH tomorrow Clinical Quality Measures AMI/AHF: ASA po Prior to arrival: GABBI Villa MD Feb 27, 2022 14:19
[2022-02-27 15:38] VITALS: BP 138/88
[2022-02-27] MEDS: DIVALPROX SPRINKLE 125 MG (DEPAKOTE) CAP PO SCH ×2 (15:46→23:09)
[2022-02-27 19:43] VITALS: BP 124/86
[2022-02-27] MEDS ORDERED: traZODone 150 MG (DESYREL) TABLET PO SCH (21:00)
[2022-02-27 23:10] VITALS: BP 93/55
[2022-02-28 04:00] VITALS: BP 91/57
[2022-02-28 06:10] LABS: BASOPHILS % (AUTO) 0 % (0-10); EOSINOPHILS # (AUTO) 0.1 10^3/uL (0.0-0.3); EOSINOPHILS % (AUTO) 1 % (0-10); HEMATOCRIT 36 % (35-52); HEMOGLOBIN 11.6 g/dL (11.5-16.0); LYMPHOCYTES # (AUTO) 4.3 10^3/uL (1.0-4.0); LYMPHOCYTES % (AUTO) 59 % (12-44); MEAN CORPUSCULAR HEMOGLOBIN 32 pg (25-34); MEAN CORPUSCULAR HGB CONC 33 g/dL (32-36); MEAN CORPUSCULAR VOLUME 99 fL (80-99); MEAN PLATELET VOLUME 11.1 fL (9.0-12.2); MONOCYTES # (AUTO) 0.6 10^3/uL (0.0-1.0); MONOCYTES % (AUTO) 8 % (0-12); NEUTROPHILS # (AUTO) 2.3 10^3/uL (1.8-7.8); NEUTROPHILS % (AUTO) 31 % (42-75); PLATELET COUNT 149 10^3/uL (130-400); WHITE BLOOD COUNT 7.2 10^3/uL (4.3-11.0)
[2022-02-28 06:26] LABS: POTASSIUM 3.8 MMOL/L (3.6-5.0)
[2022-02-28 06:28] LABS: CALCIUM 8.3 MG/DL (8.5-10.1)
[2022-02-28] MEDS ORDERED: LEVOTHYROXINE 100 MCG (LEVOTHROID) TAB PO SCH (06:30)
[2022-02-28 06:32] LABS: CREATININE SERUM 0.58 MG/DL (0.60-1.30)
[2022-02-28] MEDS: DIVALPROX SPRINKLE 125 MG (DEPAKOTE) CAP PO SCH ×2 (07:26→13:20)
[2022-02-28] MEDS: VANCOMYCIN 125 MG CAPSULE PO SCH ×2 (07:26→13:20)
[2022-02-28 08:24] VITALS: BP 102/63
--- NOTE | 2022-02-28 08:55 | Cardiology Progress Note ---
Subjective Date Seen by Provider: Feb 28, 2022 Time Seen by Provider: 08:54 Subjective/Events-last exam Patient is laying down in bed. No new complaint. No chest pain Review of Systems General: No Chills, No Night Sweats; Fatigue, Malaise; No Appetite, No Other HEENT: No Head Aches, No Visual Changes, No Eye Pain, No Ear Pain, No Dysphasia, No Sinus Congestion, No Post Nasal Drip, No Sore Throat, No Other Pulmonary: No Dyspnea, No Cough, No Pleuritic Chest Pain, No Other Cardiovascular: No: Chest Pain, Palpitations, Orthopnea, Paroxysmal Noc. Dyspnea, Edema, Lt Headedness, Other Focused Exam Lactate Level 02/25/22 22:19: Lactic Acid Level 1.47 Objective-Cardiology Exam Last Set of Vital Signs Vital Signs 02/28/22 08:24 Temp 36.3 Pulse 80 Resp 20 B/P (MAP) 102/63 (76) Pulse Ox 97 O2 Delivery Room Air I&O Intake and Output 02/28/22 00:00 Intake Total 1800 ml Output Total 1925 ml Balance -125 ml Intake Oral 1800 ml Output Urine Total 1925 ml General: Alert (person and place) HEENT: Atraumatic Neck: Supple, No JVD Lungs: Clear to Auscultation, Normal Air Movement Heart: Regular Rate, Normal S1, Normal S2, No Murmurs Abdomen: Normal Bowel Sounds, Soft, No Tenderness, No Masses Extremities: No Edema, No Tenderness/Swelling Skin: No Rashes, No Significant Lesion Neuro: Normal Speech Psych/Mental Status: Mood NL Results Lab Laboratory Tests 02/28/22 05:00 A/P-Cardiology Admission Diagnosis Hypotensive shock Non-ST elevation myocardial infarction Coronary artery disease Congestive heart failure, acute left ventricular systolic dysfunction, ischemic cardiomyopathy Assessment/Plan Hypotensive shock. Probably underlying UTI. Patient has history of hypotension. Receiving antibiotic and IV fluid. Blood pressure is better at this time. Continue to monitor Urinary tract infection, recurrent UTI, receiving antibiotics and managed by primary care team Non-ST elevation myocardial infarction, EKG showed new T wave inversion in the anterolateral leads, troponin elevation is trending down. Probably patient had a recent event with myocardial infarction, review of her echo showed akinesia of the apex and anterior apical segment. Patient was started on aspirin and Lovenox, I will continue with conservative m anagement. Congestive heart failure, acute left ventricular systolic dysfunction, ischemic cardiomyopathy, ejection fraction 30 to 35%. Was unable to tolerate beta-blockers and/or YOKASTA inhibitor and/or ARB due to hypotension. Hyperlipidemia, maintained on Lipitor 40 mg daily, I will hold for now and monitor Advanced dementia I recommend conservative management due to her comorbid condition. Clinically appears to be improving Okay for discharge from cardiology standpoint KAILA MELCHOR MD Feb 28, 2022 08:55
[2022-02-28] MEDS ORDERED: SERTRALINE 50 MG (ZOLOFT) TABLET PO SCH (09:00)
[2022-02-28] MEDS: LACTOBACILLUS ACIDOPHILUS (PROBIOTIC) CAPSULE PO SCH ×2 (09:05→13:20)
[2022-02-28] MEDS: ASPIRIN E.C. 81 MG (ECOTRIN) TAB PO SCH (09:05)
--- NOTE | 2022-02-28 11:28 | Discharge Summary ---
Discharge Summary Reconcile Patient Problems Problems Reviewed?: Yes Hospital Course Hospital Course Date of Admission: Feb 26, 2022 at 01:20 Admission Diagnosis : Family Physician/Provider: Allen Lambert MD Date of Discharge: 02/28/22 Discharge Diagnosis: UTI Hypotension: Resolved with IVFs Antibiotic associated diarrhea Elevated Troponin Advanced Dementia Hospital Course: 71 yo F that has been treated for UTI for the last 7 days now having diarrhea and decreased PO intake. Patient was started on IV antibiotics and PO Vancomycin for concerns for C. Diff. Patient has not had any diarrhea or stools for the las t 24 hrs. PO Vanc d/c. Patient remained HDS throughout admission. Will hold blood pressure meds at time of discharge. Labs and Pending Lab Test: Laboratory Tests 02/28/22 05:00: White Blood Count 7.2, Red Blood Count 3.60L, Hemoglobin 11.6, Hematocrit 36, Mean Corpuscular Volume 99, Mean Corpuscular Hemoglobin 32, Mean Corpuscular Hemoglobin Concent 33, Red Cell Distribution Width 13.5, Platelet Count 149, Mean Platelet Volume 11.1, Immature Granulocyte % (Auto) 0, Neutrophils (%) (Auto) 31L, Lymphocytes (%) (Auto) 59H, Monocytes (%) (Auto) 8, Eosinophils (%) (Auto) 1, Basophils (%) (Auto) 0, Neutrophils # (Auto) 2.3, Lymphocytes # (Auto) 4.3H, Monocytes # (Auto) 0.6, Eosinophils # (Auto) 0.1, Basophils # (Auto) 0.0, Immature Granulocyte # (Auto) 0.0, Sodium Level 140, Potassium Level 3.8, Chloride Level 109H, Carbon Dioxide Level 24, Anion Gap 7, Blood Urea Nitrogen 4L, Creatinine 0.58L, Estimat Glomerular Filtration Rate 96, BUN/Creatinine Ratio 7, Glucose Level 77, Calcium Level 8.3L Microbiology 02/26/22 Urine Culture - Preliminary, Resulted Enterococcus faecium 02/25/22 Blood Culture - Preliminary, Resulted No growth Home Meds Active Reported Depakote Sprinkle (Divalproex Sodium) 125 Mg Cap 125 Mg PO QID Acetaminophen 325 Mg Tablet 650 Mg PO Q4H PRN TAKES 2 (325MG) TAB Toprol Xl (Metoprolol Succinate) 25 Mg Tab.er.24h 25 Mg PO 1800 HOLD ID BLOOD PRESSURE <90 OR PULSE <60 Remedy Antifungal (Miconazole Nitrate) 85 Gm Powder 1 Applic TP BID Senna (Sennosides) 8.6 Mg Tablet 8.6 Mg PO DAILY PRN Levothyroxine Sodium 100 Mcg Tablet 100 Mcg PO DAILY Lactulose 10 Gm/15 Ml Solution 20 Gm PO 0600,1400 Vitamin D3 (Cholecalciferol (Vitamin D3)) 25 Mcg Tablet 25 Mcg PO DAILY Trazodone HCl 50 Mg Tablet 150 Mg PO HS TAKES 3 (50MG) TABS Sertraline HCl 25 Mg Tablet 25 Mg PO DAILY Pantoprazole Sodium 20 Mg Tablet.dr 20 Mg PO DAILY Multivitamin 1 Each Tablet 1 Each PO DAILY Folic Acid 1 Mg Tablet 1 Mg PO DAILY Atorvastatin Calcium 40 Mg Tablet 40 Mg PO 1800 Aspirin 81 Mg Tab.chew 81 Mg PO DAILY Skilled NF Admit to: [facility] Certification (SNF) I certify that SNF services are required to be given on an inpatient basis because of the above named patient's need for shelter care on a cont inuing basis for the conditions(s) for which he/she was receiving inpatient hospital services prior to his/her transfer to the SNF. Alf Facility Order: Nursing Services, Director Of Hemophilia-Evaluate & Treat, Physical Therapy-Evaluate & Treat, Speech Language-Evaluate & Treat Oxygen Delivery Method: Room Air Discharge Diet: Soft Diet Daily Activity as Tolerated: Yes Resuscitation Status: Full Code Hilaria Gee Feb 28, 2022 11:24 Discharge Physical Exam General: Alert (oriented to self only) Lungs: Clear to Auscultation, Normal Air Movement Heart: Regular Rate, No Murmurs Abdomen: Normal Bowel Sounds, Soft, No Tenderness, No Masses Extremities: No Edema, No Tenderness/Swelling HILARIA GEE MD Feb 28, 2022 11:28
[2022-02-28] MEDS ORDERED: LACT1CAP7 PO (11:31)
[2022-02-28] MEDS ORDERED: CEFD300C3 PO (11:31)
[2022-02-28 12:24] VITALS: BP 104/52
[2022-02-28] MEDS: ENOXAPARIN 60 MG/0.6 ML (LOVENOX) SYR SC SCH (13:20)
[2022-02-28 15:56] VITALS: BP 104/52
--- NOTE | 2022-02-28 19:53 | Physician Query Clarification ---
Physician Query-General Query to Physician: The medical record reflects the following clinical scenario: The patient, in the setting of History/Risk factors, Advanced age, HTN, Hyperlipidemia, Hypotension prior to arrival Clinical Findings Admission Troponin 1.010 then decreased to 0.857 and then 0.680, "EKG showed new T wave inversion in the anterolateral leads, troponin elevation is trending down", Treatment started on aspirin and Lovenox, Cardiology consult. Was off BB due to hypotension Question: Do you agree with the impression of Type II [place] per Dr. Bridget Vasquez and Dr. Katt Caba ? 1. Yes; will document Type II [place], present on admission in the Progress Notes 2. No; will continue current documentation in the Progress Notes 3. Other; will document explanation of clinical findings 4. Clinically undetermined; no explanation for clinical findings Please clarify and document your clinical opinion in the Progress Notes and Discharge Summary including the definitive and/or presumptive diagnosis, (suspected or probable), related to the above clinical findings. Please include clinical findings supporting your diagnosis. In responding to this query, please exercise your independent professional judgment. The purpose of this communication is to more accurately reflect the complexity of your patients condition. The fact that a question is asked does not imply that any particular answer is desired or expected. Thank you for timely response to this clarification. Dee Lazar MSN, RN Clinical Sewer Pipe Offbearer [phone] PHYSICIAN RESPONSE: Based on the clinical findings in the record, please respond to the query above on this document as an addendum. Physician Response: If you have questions please contact: Electromedical Service Engineer: Ext: Thank you for your time and cooperation. Clinical Sewer Pipe Offbearer/Electromedical Service Engineer This is a permanent part of the medical [address] DEE LAZAR Feb 28, 2022 19:53
--- NOTE | 2022-03-02 02:27 | Physician Query Clarification ---
PQ-Intro New Diagnosis Admission/Discharge Admission Date: Feb 26, 2022 at 01:20 Discharge Date: Feb 28, 2022 at 15:59 GABBI Sigala MD The medical record reflects the following clinical scenario: History/Risk Factors: [list no more than 2] Clinical Findings: [list no more than 2] Treatment: [list no more than 2] Question: What condition best reflects the above clinical scenario? Please document a response in the Progress Noter or Discharge Summary. 1. [list #1 diagnosis choice/organism] 2. [list the diagnosis/condition already documented] 3. Other, with explanation of the clinical findings. 4. Clinically undetermined, no explanation for the clinical findings. In responding to this query, please exercise your independent professional judgment. The purpose of this communication is to more accurately reflect the complexity of your patients condition. The fact that a question is asked does not imply that any particular answer is desired or expected. Thank you for your timely response to this clarification. Requestors name: [ ] Phone # [ ] THIS PHYSICIAN QUERY FORM IS A PERMANENT PART OF THE MEDICAL RECORD ASUNCION VARGAS Mar 02, 2022 02:27
== END 2022-02-28 15:59 | DRG 689 ==
LOC: EDUNIT# 20:29 → ER 20:30 → 4TH 02-26 01:20
PROVIDERS: ADMIT Internal Medicine; ATTEND Family Medicine
DX: N39.0 Urinary tract infection, site not specified (principal); R57.8 Other shock; I50.21 Acute systolic (congestive) heart failure; I21.A1 Myocardial infarction type 2; K52.1 Toxic gastroenteritis and colitis; F03.90 Unspecified dementia, unspecified severity, without behavioral disturbance, psychotic disturbance, mood disturbance, and anxiety; I25.5 Ischemic cardiomyopathy; E86.0 Dehydration; T36.95XA Adverse effect of unspecified systemic antibiotic, initial encounter; I11.0 Hypertensive heart disease with heart failure; Z79.82 Long term (current) use of aspirin; Z79.899 Other long term (current) drug therapy; E78.00 Pure hypercholesterolemia, unspecified; K21.9 Gastro-esophageal reflux disease without esophagitis; E03.9 Hypothyroidism, unspecified; F31.9 Bipolar disorder, unspecified
CPT/HCPCS: 36415; 71045; 80048; 80053; 81000; 82533; 83605; 84484; 85025; 85379; 85610; 85730; 87040; 87077; 87088; 87186; 87636; 93005; 93306; 94760